=== PATIENT | female | born 1990 | race Caucasian/White ===

== ENCOUNTER → 2024-06-10 13:55 | Outpatient (REF) | payer OTHER, SELFPAY | LOC: CLAB 13:55 | PROVIDERS: ATTENDING PHYSICIAN Surgery | DX: Z86.19 Personal history of other infectious and parasitic diseases (principal) | CPT/HCPCS: 88305 ==

== ENCOUNTER 2024-08-13 08:16 | Emergency (ER) | payer OTHER, SELFPAY ==
[2024-08-13 08:17] VITALS: BP 127/75
--- NOTE | 2024-08-13 10:02 | ED.GENMED ---
History of Present Illness
General
Chief Complaint: Cold/Flu/URI Symptoms
Source: patient
Exam Limitations: none
Time Seen by Provider: 08/13/24 08:39
Nursing documentation reviewed up to this point in time: agreed with
History of Present Illness
History of Present Illness:
Patient is a 34-year-old female who presents to the ER for evaluation. Patient reports 6 days ago she started not feeling well with chills body aches and headache. She also had mild cough and since then symptoms have not improved. She did see her
family doctor several days ago was given a prescription for Zithromax but told not to take it when symptoms worsen. She woke up this morning with an itchy rash which what prompted her to come to the ER. She still has cough and a hoarse voice. She
feels very tired. She denies any shortness of breath or fevers.
Review of Systems
Review of Systems
Allergies reviewed?: Yes
All Other Systems: ROS reviewed and negative except as documented in HPI and ROS
Constitutional: Reports fatigue and chills; Denies fever
EENT: Reports other (hoarse voice )
Respiratory: Reports cough; Denies trouble breathing
Cardiac: Reports no symptoms
ABD/GI: Reports no symptoms
: Reports no symptoms
Musculoskeletal: Reports no symptoms
Skin: Reports itching and rash
Neurological: Reports headache
Psychiatric: Reports no symptoms
Phy Exam
General Physical Exam
General Presentation: no apparent distress
General age: appears stated age
General Skin: warm and dry
General Habitus: normal
General Mental: alert
General Hydration: appears well hydrated
ENT Exam
ENT Exam: EOMI, pharynx normal, neck supple and other (mild cervical lymphadenopathy)
Eye Exam
Eye Exam: PERRL and EOMI
Eye Exam General: PERRL: bilateral and EOM intact: bilateral
Pupil Exam: Bilateral: round and reactive
Cardiovascular Exam
Cardiovascular Exam: regular rate/rhythm, no murmur and normal peripheral pulses
Pulmonary Exam
Pulmonary Exam: lungs clear and no respiratory distress
Neurological Exam
Neurological Exam: alert and oriented x3
Musculoskeletal Exam
Musculoskeletal Exam: full ROM
Skin Exam
Skin Exam: normal color and warm/dry
Psychiatric Exam
Psychiatric Exam: normal mood/affect
Course
Orders/Labs/Results
Orders:
Orders
08/13/24 09:43
COVID-19 Antigen Urgent
Source: Nasal Swab
Influenza A+B Rapid Molecular Urgent
ANGELITA Source: Nasal Swab
Specimen Description:
08/13/24 09:48
Test Result ONCE
08/13/24 09:49
IV Insert/Care/Rem.- Treatment PRN
0.9% Sodium Chloride 1000 ml [Nss] 1,000 ml IV BOLUS
08/13/24 10:10
Complete Blood Count/With Diff Urgent
Comprehensive Metabolic Panel Urgent
HCG, Serum Qualitative Screen Urgent
Monotest Urgent
08/13/24 12:03
Chest [CR Chest - 2 Views ] Urgent
Comment:
Reason For Exam: cough
Abnormal Lab Results
08/13/24
10:10
WBC 3.9 L 10^3/uL
(4.8-10.8)
MCH 32.1 H pg
(27.0-31.0)
Absolute Lymphs (auto) 1.1 L 10^3/uL
(1.2-3.4)
Monocytes % 11.5 H %
(1.7-9.3)
Monoscreen Positive A
(Negative)
08/13/24 10:10
08/13/24 10:10
Vital Signs
Initial and Last Documented VS:
Initial Vital Signs
Temp Pulse Resp BP Pulse Ox
98.0 F 74 18 127/75 97
08/13/24 08:17 08/13/24 08:17 08/13/24 08:17 08/13/24 08:17 08/13/24 08:17
Last Documented Vital Signs
Temp Pulse Resp BP Pulse Ox
98.0 F 74 18 127/75 97
08/13/24 08:17 08/13/24 08:17 08/13/24 08:17 08/13/24 08:17 08/13/24 08:17
MDM/Problems Addressed
Differential Diagnosis Includes:
Not limited viral syndrome less likely pneumonia possible allergic reaction, viral rash
MDM/Problems Addressed:
Patient tested positive for mono which explains her symptoms of feeling very tired achy. She is afebrile her vital signs are stable she is in no acute distress. Rash likely viral possible allergy less likely patient with no difficulty breathing no
lip or tongue swelling nontoxic. No meningismus x-ray of initially ordered however after mono I did discuss with patient that we likely could cancel it however she wished to proceed however when she did go over to x-ray she refused at the time.
She is trying a and unsure. This is reasonable to hold off as she has mono her lungs are clear she is afebrile and not likely to have pneumonia. Her LFTs are normal
*Pulse Oximetry
Patient hypoxic: no
*Critical Care Note
Total Time (30-74mins, 75-104mins- exclusive of procedures): Not Applicable
ED Attending Note
-
Portions of this chart may have been created with voice recognition software.� Occasional wrong word or��sound alike� substitutions may have occurred due to the inherent limitations of voice recognition software.
Discharge Plan
Departure
Patient Disposition: Home (Routine Discharge)
Date of Disposition: 08/13/24
Time of Disposition: 12:55
Patient with high blood pressure during this ER visit?: No
Covid-19: Not Applicable
Discharge Problem:
Mononucleosis
Instructions: Mononucleosis
Prescriptions:
No Action
PNV cmb#95-ferrous fumarate-FA [] 1 EACH tablet
1 ea PO DAILY
Synthroid
25 mcg PO DAILY
ibuprofen 600 MG tablet
600 mg PO Q4HPRN PRN (Reason: moderate pain/cramps) 0RF
Referrals:
Sonja Nagel MD [Family Provider] -
Stand Alone Forms: Return to Work
Activity Restrictions/Additional Instructions:
As discussed get plenty of rest and stay well-hydrated. Follow-up with your family doctor in extremities for reevaluation return if any worsening of symptoms
Interventions
Interventions:
*Risk Screen - Suicide Last Done: 08/13/24 08:17
*General Assessment Last Done: 08/13/24 08:17
*Neglect/Abuse Screening Last Done: 08/13/24 08:17
*ED COVID-19 Vaccine History Last Done: 08/13/24 12:00
ED- Pulmonary Assessment Last Done: 08/13/24 12:00
Discharge Date and Time
Print Language: UPPER SORBIAN
[2024-08-13 10:11] LABS: COVID-19 Antigen Negative (Negative)
[2024-08-13] MEDS: NSS 1000 IV (10:11)
[2024-08-13 10:23] LABS: % Basophils 0.3 % (0-2); % Immature Granulocytes 0.3 % (0-0.5); % Lymphocytes 27.6 % (20.5-51.1); % Monocytes 11.5 % (1.7-9.3); % Neutrophils 59.3 % (42.2-75.2); Absolute Lymphocytes 1.1 10^3/uL (1.2-3.4); Absolute Monocytes 0.5 10^3/uL (0.1-0.6); Absolute Neutrophils 2.3 10^3/uL (1.4-6.5); Hematocrit 39.3 % (37.0-47.0); Mean Corp Hgb Conc. 35.6 g/dL (33.0-37.0); Mean Corpuscular Hgb 32.1 pg (27.0-31.0); Mean Corpuscular Volume 90.1 fL (81.0-99.0); Mean Platelet Volume 9.7 fL (7.4-10.4); Nucleated Red Blood Cells % 0 %; Platelet Count 237 10^3/uL (130-400); Red Blood Cell Count 4.36 10^6/uL (4.20-5.40); Red Cell Dist. Width 12.4 % (11.5-14.5); White Blood Cell Count 3.9 10^3/uL (4.8-10.8)
[2024-08-13 10:29] LABS: HCG, Serum Qualitative Screen Negative
[2024-08-13 10:32] LABS: ALT (SGPT) 19 U/L (0-35); AST (SGOT) 25 U/L (14-36); Albumin 4.6 g/dl (3.5-5.0); Alkaline Phosphatase 85 U/L (38-126); Blood Urea Nitrogen 8 mg/dl (7-17); Calcium 9.5 mg/dl (8.4-10.2); Carbon Dioxide 29 mmol/L (22-30); Chloride 103 mmol/L (98-107); Glucose 91 mg/dl (70-99); Potassium 4.1 mmol/L (3.5-5.1); Sodium 140 mmol/L (135-145); Total Protein 6.9 g/dl (6.3-8.2); eGFR > 60.00
[2024-08-13 10:36] LABS: Monotest Positive (Negative)
[2024-08-13 13:05] VITALS: BP 124/61
== END 2024-08-13 13:05 | disposition home or self-care (01) ==
LOC: EMR 08:16
PROVIDERS: Nurse Practitioner; EMERGENCY PHYSICIAN Emergency Medicine; FAMILY PHYSICIAN Student in an Organized Health Care Education/Training Program
DX: B27.90 Infectious mononucleosis, unspecified without complication (principal)
CPT/HCPCS: 99283; 96360; 80053; 84703; 85025; 86308; 87502; 87811

== ENCOUNTER → 2024-08-22 07:07 | Outpatient (REF) | payer OTHER, SELFPAY | LOC: HWRAD 07:07 | PROVIDERS: ATTENDING PHYSICIAN Physician Assistant Medical | DX: R05.1 Acute cough (principal) | CPT/HCPCS: 71046 ==

== ENCOUNTER → 2024-08-27 07:01 | Outpatient (REF) | payer OTHER, SELFPAY | LOC: HWRAD 07:01 | PROVIDERS: ATTENDING PHYSICIAN Student in an Organized Health Care Education/Training Program | DX: R05.3 Chronic cough (principal); R07.81 Pleurodynia | CPT/HCPCS: 71111 ==

== ENCOUNTER → 2024-09-09 06:48 | Outpatient (REF) | payer OTHER, SELFPAY | LOC: RAD 06:48 | PROVIDERS: ATTENDING PHYSICIAN Student in an Organized Health Care Education/Training Program; FAMILY PHYSICIAN Student in an Organized Health Care Education/Training Program | DX: R07.81 Pleurodynia (principal); R06.2 Wheezing; R05.3 Chronic cough | CPT/HCPCS: 71250 ==

== ENCOUNTER → 2024-11-27 07:45 | Outpatient (REF) | payer OTHER, SELFPAY | LOC: HWRAD 07:45 | PROVIDERS: ATTENDING PHYSICIAN Student in an Organized Health Care Education/Training Program; FAMILY PHYSICIAN Student in an Organized Health Care Education/Training Program | DX: N93.9 Abnormal uterine and vaginal bleeding, unspecified (principal) | CPT/HCPCS: 76830; 76856 ==

== ENCOUNTER → 2025-01-16 09:13 | Outpatient (REF) | payer OTHER, SELFPAY | LOC: HWRAD 09:13 | PROVIDERS: ATTENDING PHYSICIAN Nurse Practitioner Family; FAMILY PHYSICIAN Student in an Organized Health Care Education/Training Program | DX: Z34.90 Encounter for supervision of normal pregnancy, unspecified, unspecified trimester (principal) | CPT/HCPCS: 76801 ==

== ENCOUNTER → 2025-02-18 07:46 | Outpatient (REF) | payer OTHER, SELFPAY | LOC: PNTC 07:46 | PROVIDERS: ATTENDING PHYSICIAN Obstetrics & Gynecology | DX: Z36.0 Encounter for antenatal screening for chromosomal anomalies (principal); Z36.82 Encounter for antenatal screening for nuchal translucency; E88.01 Alpha-1-antitrypsin deficiency; O09.521 Supervision of elderly multigravida, first trimester | CPT/HCPCS: 76801; 76813 ==

== ENCOUNTER 2025-02-23 08:46 | Emergency (ER) | payer OTHER, SELFPAY ==
[2025-02-23 10:25] VITALS: BP 118/55
[2025-02-23 10:33] VITALS: BP 118/55; BMI 24.0
[2025-02-23 10:38] LABS: % Basophils 0.3 % (0-2); % Eosinophils 0.4 % (0-6); % Immature Granulocytes 0.4 % (0-0.5); % Lymphocytes 19.9 % (20.5-51.1); % Monocytes 7.4 % (1.7-9.3); % Neutrophils 71.6 % (42.2-75.2); Absolute Lymphocytes 1.6 10^3/uL (1.2-3.4); Absolute Monocytes 0.6 10^3/uL (0.1-0.6); Absolute Neutrophils 5.7 10^3/uL (1.4-6.5); Hematocrit 35.4 % (37.0-47.0); Hemoglobin 12.7 g/dL (12.0-16.0); Mean Corp Hgb Conc. 35.9 g/dL (33.0-37.0); Mean Corpuscular Volume 89.2 fL (81.0-99.0); Mean Platelet Volume 9.7 fL (7.4-10.4); Nucleated Red Blood Cells % 0 %; Platelet Count 239 10^3/uL (130-400); Red Blood Cell Count 3.97 10^6/uL (4.20-5.40); Red Cell Dist. Width 12.7 % (11.5-14.5)
[2025-02-23 10:39] LABS: Urine Albumin Negative (Neg - Trace); Urine Bilirubin Negative (Negative); Urine Character Clear (Clear); Urine Color Yellow; Urine Glucose Negative (Negative); Urine Ketone Negative (Negative); Urine Leukocyte Negative (Negative); Urine Nitrite Negative (Negative); Urine Occult Blood 1+ (Negative); Urine Urobilinogen Negative (Neg - 1+)
[2025-02-23 10:49] LABS: Blood Urea Nitrogen 6 mg/dl (7-17); Calcium 9.2 mg/dl (8.4-10.2); Carbon Dioxide 24 mmol/L (22-30); Chloride 106 mmol/L (98-107); Estimated Creatinine Clearance 113 ml/min; Glucose 92 mg/dl (70-99); Potassium 3.7 mmol/L (3.5-5.1); Sodium 137 mmol/L (135-145); eGFR > 60.00
[2025-02-23 11:00] VITALS: BP 102/48
[2025-02-23 11:02] LABS: Urine Red Blood Cell 0-2 /HPF (0-2)
[2025-02-23 11:03] LABS: Urine Bacteria Few (Negative); Urine White Cell 0-2 /HPF (0-5)
--- NOTE | 2025-02-23 12:44 | ED.GENMED ---
History of Present Illness
General
Chief Complaint: Problems
Source: patient
Exam Limitations: none
Time Seen by Provider: 02/23/25 08:59
History of Present Illness
History of Present Illness:
34-year-old female presents with vaginal bleeding. Patient states she is about 13 weeks . Patient states she has some bleeding started 2 days ago that was sort of a gush of blood. Patient states she called her OB who told her to just
watch and wait as it was suspected related to a 'polyp'. Today she continued to have some bleeding but to a more mild degree became concerned. OB told her to come. She has a history of a negative blood type. She denies any abdominal cramping.
No back pain or vomiting. No fevers. No dysuria. Patient is with 1 miscarriage
Past History
Past History
ED Past Medical History: Hypothyroidism and Other (HPV)
Phy Exam
Physical Exam
Physical Exam:
CONSTITUTIONAL Patient alert and oriented to person, place and time. Well-appearing. Vital signs reviewed.
HEAD atraumatic, normocephalic.
EYES eyelids normal to inspection, Extraocular muscles intact, Conjunctiva normal, Sclera normal.
NECK normal range of motion, Trachea midline, no jugular venous distention.
RESPIRATORY CHEST No respiratory distress noted, Chest expansion equal
ABDOMEN abdomen nontender, Bowel sounds normal. No distention.
BACK normal inspection, no obvious deformities
UPPER EXTREMITY range of motion normal, Motor strength normal, no cyanosis, no edema.
LOWER EXTREMITY range of motion normal, Motor strength normal, no cyanosis, no edema.
NEURO Speech normal, No focal motor deficits, Vass coma scale 15, Memory normal, Cranial Nerves intact to screening exam.
SKIN skin warm, dry, and normal in color.
Course
Orders/Labs/Results
Orders:
Orders
02/23/25 09:28
US 2nd/3rd Trimester Urgent
Comment:
Reason For Exam: PVB
02/23/25 10:14
Basic Metabolic Panel Urgent
Beta HCG Quantitative Urgent
Is this a screen?: No
Complete Blood Count/With Diff Urgent
02/23/25 10:15
Type+Screen Urgent
BBK Wristband Number:
Urinalysis Reflex To Culture Urgent
Date Specimen was Collected: 02/23/25
Time Specimen was Collected: 09:35
Urine Microscopic Reflex Cult Urgent
02/23/25 11:07
Rhogam [* Blood Bank Products] Urgent
Blood Bank Products: *Rhogam - Full Dose
Quantity: 1
Transfuse Today: Yes
Reason: Bleeding
Rho (D) Immune Globulin [Rhogam] 300 mcg IM ONCE ONE
Abnormal Lab Results
02/23/25 02/23/25
10:14 10:15
RBC 3.97 L 10^6/uL
(4.20-5.40)
Hct 35.4 L %
(37.0-47.0)
MCH 32.0 H pg
(27.0-31.0)
Lymphocytes % 19.9 L %
(20.5-51.1)
BUN 6 L mg/dl
(7-17)
Creatinine 0.4 L mg/dL
(0.6-1.0)
Ur Occult Blood Reflex 1+ A
(Negative)
Urine Bacteria (Reflex) Few A
(Negative)
02/23/25 10:14
02/23/25 10:14
Vital Signs
Initial and Last Documented VS:
Initial Vital Signs
Temp Pulse Resp Pulse Ox
97.8 F 77 18 100
02/23/25 08:48 02/23/25 08:48 02/23/25 08:48 02/23/25 08:48
Last Documented Vital Signs
Temp Pulse Resp BP Pulse Ox
98.5 F 65 11 102/48 99
02/23/25 10:33 02/23/25 11:45 02/23/25 11:45 02/23/25 11:00 02/23/25 11:45
Information
Weeks gestation: N/A
Location: N/A
MDM/Problems Addressed
Differential Diagnosis Includes:
Miscarriage, ectopic , subchorionic hemorrhage, placenta previa
MDM/Problems Addressed:
Threatened miscarriage, RhoGAM administration
*Radiology
Radiology exam reviewed: radiology read reviewed
*Pulse Oximetry
Patient hypoxic: no
*Critical Care Note
Total Time (30-74mins, 75-104mins- exclusive of procedures): Not Applicable
Data Reviewed
Review of Other/Old Records Reveals: Labs (Prior labs reveal she has a negative)
Source: patient
Patient Management
Escalation/DeEscalation of care consider admission/obs:
RhoGAM administered. Ultrasound noted. Outpatient OB follow-up recommended
ED Attending Note
-
Portions of this chart may have been created with voice recognition software.� Occasional wrong word or��sound alike� substitutions may have occurred due to the inherent limitations of voice recognition software.
Discharge Plan
Departure
Patient Disposition: Home (Routine Discharge)
Date of Disposition: 02/23/25
Time of Disposition: 13:06
Patient with high blood pressure during this ER visit?: No
Discharge Problem:
Threatened miscarriage
Instructions: Threatened Miscarriage (DC)
Prescriptions:
No Action
PNV cmb#95-ferrous fumarate-FA [] 1 EACH tablet
1 ea PO DAILY
Synthroid
25 mcg PO DAILY
ibuprofen 600 MG tablet
600 mg PO Q4HPRN PRN (Reason: moderate pain/cramps) 0RF
Referrals:
Sonja Nagel MD [Family Provider] -
Activity Restrictions/Additional Instructions:
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 Please avoid putting anything in the vagina until cleared by OB. Return immediately for cramping, increased bleeding or any other concerns
Interventions
Interventions:
*Risk Screen - Suicide Last Done: 02/23/25 08:48
*General Assessment Last Done: 02/23/25 08:48
*Neglect/Abuse Screening Last Done: 02/23/25 08:48
*ED- Fall Risk Assessment Last Done: 02/23/25 10:33
*ED COVID-19 Vaccine History Last Done: 02/23/25 10:33
*Nursing Disposition Last Done: 02/23/25 13:23
ED-Female Genitourinary Assessment Last Done: 02/23/25 10:33
Discharge Date and Time
Discharge Date/Time: 02/23/25 13:24
Print Language: LUXEMBOURGISH
[2025-02-23] MEDS: RHOGAM 300 MCG IM (12:57)
== END 2025-02-23 13:24 | disposition home or self-care (01) ==
LOC: EMR 08:46
PROVIDERS: EMERGENCY PHYSICIAN Emergency Medicine; FAMILY PHYSICIAN Student in an Organized Health Care Education/Training Program
DX: O20.0 Threatened abortion (principal); Z3A.13 13 weeks gestation of pregnancy
CPT/HCPCS: 99285; 36430; 76805; 80048; 81003; 81015; 84702; 85025; 86850; 86900; 86901; J2790

== ENCOUNTER → 2025-03-12 09:11 | Outpatient (REF) | payer OTHER, SELFPAY | LOC: PNTC 09:11 | PROVIDERS: ATTENDING PHYSICIAN Obstetrics & Gynecology | DX: O09.529 Supervision of elderly multigravida, unspecified trimester (principal); E88.01 Alpha-1-antitrypsin deficiency; O99.280 Endocrine, nutritional and metabolic diseases complicating pregnancy, unspecified trimester | CPT/HCPCS: 76805 ==

== ENCOUNTER 2025-04-12 03:22 | Emergency (ER) | payer OTHER, SELFPAY ==
[2025-04-12 03:23] VITALS: BP 105/63
[2025-04-12 05:30] VITALS: BP 92/48
[2025-04-12] MEDS: DUONEB 3 ML INH (06:18)
--- NOTE | 2025-04-12 06:47 | ED.GENMED ---
History of Present Illness
<Sulaiman Gaines, DO - Last Filed: 04/12/25 06:48>
General
Chief Complaint: Throat Problem
Source: patient
Exam Limitations: none
Time Seen by Provider: 04/12/25 04:01
Nursing documentation reviewed up to this point in time: agreed with
History of Present Illness
History of Present Illness:
Note:
CHIEF COMPLAINT(S)
Shortness of breath and sore throat.
HISTORY OF PRESENT ILLNESS
The patient is a 34-year-old female who reports the onset of symptoms consistent with a sore throat and difficulty breathing. The symptoms began with a feeling of unease followed by waking up in the morning with a sore throat. The patient attempted
to manage the sore throat initially with Tylenol, as she is accustomed to using this medication. She describes waking up afterward with shortness of breath, likening the sensation to being unable to catch her breath. The shortness of breath
reportedly began the night before her presentation and persisted into the morning. The patient reports vomiting once during this illness. She is concerned about the progression of her symptoms.
PHYSICAL EXAM
General: Alert, no acute distress.
Skin: Warm, dry.
Head: Normocephalic, atraumatic.
Neck: Supple, trachea midline.
Eye, Ears, Nose, Mouth and Throat: Oral mucosa moist.
Cardiovascular: Normal peripheral perfusion, No edema.
Respiratory: Respirations are non-labored.
Gastrointestinal: Abdomen nondistended
Back: Normal range of motion, Normal alignment.
Musculoskeletal: Normal range of motion, normal strength.
Neurological: Alert and oriented to person, place, time, and situation, No focal neurological deficit observed.
Psychiatric: Cooperative, appropriate mood & affect.
PLAN
The plan includes administering an albuterol inhaler to relieve the patients shortness of breath. A strep throat test is ordered to rule out a bacterial infection as a cause of the sore throat and respiratory symptoms.
DIFFERENTIAL DIAGNOSIS
The Differential Diagnosis includes, in no particular order and is not limited to:
1. Viral Pharyngitis
2. Bacterial Pharyngitis
3. Upper Respiratory Infection
4. Allergy-related Asthma
5. Gastroesophageal Reflux Disease
6. Bronchitis
7. Sinusitis
8. Anxiety-induced Hyperventilation
9. Pneumonia
10. COVID-19
Past History
<DO Rajani Hawkins Last Filed: 04/12/25 06:48>
Past History
ED Past Medical History: Hypothyroidism and Other (HPV)
Phy Exam
<DO Rajani Hawkins Last Filed: 04/12/25 06:48>
General Physical Exam
General Presentation: well appearing and no apparent distress
General Skin: warm and dry
General Habitus: normal
General Mental: alert
General Hydration: appears well hydrated
ENT Exam
ENT Exam: EOMI, neck supple, normocephalic and pharyngeal erythema
Eye Exam
Eye Exam: PERRL, cornea clear and conjunctiva normal
Cardiovascular Exam
Cardiovascular Exam: regular rate/rhythm, no edema, no murmur and normal peripheral pulses
Pulmonary Exam
Pulmonary Exam: lungs clear, no respiratory distress, no rales, no crackles, no rhonchi, no stridor, no wheezing and no cough
Gastrointestinal Exam
Gastrointestinal Exam: normal bowel sounds, non tender, soft, no organomegaly, no pulsatile mass and non distended
Neurological Exam
Neurological Exam: alert, oriented x3, no motor deficits and speech normal
Musculoskeletal Exam
Musculoskeletal Exam: full ROM and no edema
Skin Exam
Skin Exam: normal color, warm/dry, no rash and no petechia
Psychiatric Exam
Psychiatric Exam: normal mood/affect
Course
<DO Rajani Hawkins Filed: 04/12/25 06:48>
Orders/Labs/Results
Orders:
Orders
04/12/25 05:22
Rapid Strep Group A Urgent
ANGELITA Source: Throat/Pharynx
Specimen Description:
Date Specimen was Collected: 04/12/25
Time Specimen was Collected: 05:18
04/12/25 06:06
Ipratropium/Albuterol Sulfate [Duoneb] 3 ml INH R NOW ONE
04/12/25 06:40
CR Soft Tissue Neck Urgent
Comment:
Reason For Exam: neck pain
04/12/25 06:41
EKG [Electrocardiogram (*1)] Urgent
Reason for Study: Shortness of Breath
EKG- Treatment ONCE
Vital Signs
Initial and Last Documented VS:
Initial Vital Signs
Temp Pulse Resp BP Pulse Ox
99.2 F 97 20 105/63 98
04/12/25 03:23 04/12/25 03:23 04/12/25 03:23 04/12/25 03:23 04/12/25 03:23
Last Documented Vital Signs
Temp Pulse Resp BP Pulse Ox
99.2 F 80 16 92/48 97
04/12/25 03:23 04/12/25 05:30 04/12/25 05:30 04/12/25 05:30 04/12/25 06:48
<Jonathan Knox PA-C - Last Filed: 04/15/25 09:05>
Orders/Labs/Results
Orders:
Orders
04/12/25 05:22
Rapid Strep Group A Urgent
ANGELITA Source: Throat/Pharynx
Specimen Description:
Date Specimen was Collected: 04/12/25
Time Specimen was Collected: 05:18
04/12/25 06:06
Ipratropium/Albuterol Sulfate [Duoneb] 3 ml INH R NOW ONE
04/12/25 06:40
CR Soft Tissue Neck Urgent
Comment:
Reason For Exam: neck pain
04/12/25 06:41
EKG [Electrocardiogram (*1)] Urgent
Reason for Study: Shortness of Breath
EKG- Treatment ONCE
Vital Signs
Initial and Last Documented VS:
Initial Vital Signs
Temp Pulse Resp BP Pulse Ox
99.2 F 97 20 105/63 98
04/12/25 03:23 04/12/25 03:23 04/12/25 03:23 04/12/25 03:23 04/12/25 03:23
Last Documented Vital Signs
Temp Pulse Resp BP Pulse Ox
99.2 F 80 16 92/48 97
04/12/25 03:23 04/12/25 05:30 04/12/25 05:30 04/12/25 05:30 04/12/25 06:48
<Sulaiman Gaines DO - Last Filed: 04/12/25 06:48>
*Pulse Oximetry
SaO2: 97
Oxygen Mode of Delivery: Room air
<Jonathan Knox PA-C - Last Filed: 04/15/25 09:05>
*Pulse Oximetry
Patient hypoxic: no
*Critical Care Note
Total Time (30-74mins, 75-104mins- exclusive of procedures): Not Applicable
<Jonathan Knox PA-C - Last Filed: 04/15/25 09:05>
Update Note
Update Note:
04/15/2025 0904: Throat Cx w/ group C strep, pt continues to have symptoms of sore throat, although improved. Given that she is , will treat w/ PCN for 7d course. Advised pt to f/u with OBGYN
ED Attending Note
<Sulaiman Gaines DO - Last Filed: 04/12/25 06:48>
-
Portions of this chart may have been created with voice recognition software.� Occasional wrong word or��sound alike� substitutions may have occurred due to the inherent limitations of voice recognition software.
Discharge Plan
Departure
Patient Disposition: Home (Routine Discharge)
Date of Disposition: 04/12/25
Time of Disposition: 10:26
Patient with high blood pressure during this ER visit?: No
Condition: Good
Discharge Problem:
Pharyngitis, acute
Instructions: Sore Throat, Adult (DC)
Prescriptions:
New
penicillin V potassium 500 mg tablet
500 mg PO TID 7 Days Qty: 21 0RF
No Action
levothyroxine [Synthroid] 50 mcg Tablet
50 mcg PO DAILY
1 tab PO DAILY
Referrals:
Sonja Nagel MD [Family Provider, Internal Medicine]
Interventions
Interventions:
*Risk Screen - Suicide Last Done: 04/12/25 03:23
*General Assessment Last Done: 04/12/25 03:23
*Neglect/Abuse Screening Last Done: 04/12/25 03:23
*ED- Fall Risk Assessment Last Done: 04/12/25 05:30
*ED COVID-19 Vaccine History Last Done: 04/12/25 10:45
*Nursing Disposition Last Done: 04/12/25 10:45
ED-EENT Assessment Last Done: 04/12/25 05:30
ED- Pulmonary Assessment Last Done: 04/12/25 05:30
Discharge Date and Time
Discharge Date/Time: 04/12/25 10:45
Print Language: ETHIOPIAN
== END 2025-04-12 10:45 | disposition home or self-care (01) ==
LOC: EMR 03:22
PROVIDERS: EMERGENCY PHYSICIAN Student in an Organized Health Care Education/Training Program; FAMILY PHYSICIAN Student in an Organized Health Care Education/Training Program
DX: J02.9 Acute pharyngitis, unspecified (principal); E03.9 Hypothyroidism, unspecified
CPT/HCPCS: 99283; 94640; 70360; 87070; 87147; 87880; 93005

== ENCOUNTER → 2025-04-13 08:31 | Outpatient (REF) | payer OTHER, SELFPAY | LOC: PNTC 08:31 | PROVIDERS: ATTENDING PHYSICIAN Obstetrics & Gynecology | DX: O99.280 Endocrine, nutritional and metabolic diseases complicating pregnancy, unspecified trimester (principal); E88.01 Alpha-1-antitrypsin deficiency; O09.522 Supervision of elderly multigravida, second trimester; O35.5XX0 Maternal care for (suspected) damage to fetus by drugs, not applicable or unspecified | CPT/HCPCS: 76816 ==

== ENCOUNTER → 2025-06-03 07:22 | Outpatient (REF) | payer OTHER, SELFPAY | LOC: PNTC 07:22 | PROVIDERS: ATTENDING PHYSICIAN Obstetrics & Gynecology | DX: O09.529 Supervision of elderly multigravida, unspecified trimester (principal); O99.280 Endocrine, nutritional and metabolic diseases complicating pregnancy, unspecified trimester; E88.01 Alpha-1-antitrypsin deficiency; O09.522 Supervision of elderly multigravida, second trimester | CPT/HCPCS: 76816 ==

== ENCOUNTER → 2025-07-15 07:47 | Outpatient (REF) | payer OTHER, SELFPAY | LOC: PNTC 07:47 | PROVIDERS: ATTENDING PHYSICIAN Obstetrics & Gynecology | DX: O09.523 Supervision of elderly multigravida, third trimester (principal); O99.280 Endocrine, nutritional and metabolic diseases complicating pregnancy, unspecified trimester; E88.01 Alpha-1-antitrypsin deficiency | CPT/HCPCS: 76816 ==